=== PATIENT | female | born 1965 | race Caucasian/White ===

== ENCOUNTER → 2020-03-16 10:34 | Outpatient (BNVA) | payer BC, SELFPAY | PROVIDERS: PCP Nurse Practitioner Family; Referring Provider Nurse Practitioner Family; Visit Provider Student in an Organized Health Care Education/Training Program | DX: Z76.89 Persons encountering health services in other specified circumstances (principal) ==

== ENCOUNTER 2020-04-10 13:26 | Outpatient (REF) | payer BC, SELFPAY ==
[2020-04-12 18:16] LABS: HPV mRNA E6/E7 rflx Not Detected (Not Detected)
== END 2020-04-10 13:27 | disposition home or self-care (01) ==
LOC: HO.LAB 13:26
PROVIDERS: PCP Nurse Practitioner Family; Visit Provider Advanced Practice Midwife
DX: Z01.419 Encounter for gynecological examination (general) (routine) without abnormal findings (principal); J44.9 Chronic obstructive pulmonary disease, unspecified; Z87.42 Personal history of other diseases of the female genital tract
CPT/HCPCS: 87624; 87625; 88142

== ENCOUNTER → 2020-04-16 12:46 | Outpatient (BNVA) | payer BC, SELFPAY | PROVIDERS: Visit Provider Physician Assistant | DX: Z76.89 Persons encountering health services in other specified circumstances (principal) ==

== ENCOUNTER 2020-04-23 12:43 | Outpatient (REF) | payer BC, SELFPAY ==
--- NOTE | 2020-04-23 12:46 | MM_ITS ---
EXAMINATION: MM SCREENING DIGITAL BREAST TOMOSYNTHESIS, BILATERAL CLINICAL INFORMATION: Screening. Asymptomatic. The lifetime risk of breast cancer based on the Tyrer-Cuzick Model is 8%. COMPARISON: Mammography: 11/18/2018, 08/05/2016 TECHNIQUE: Digital breast tomosynthesis is performed in both the craniocaudal and mediolateral oblique views along with computer-aided detection (CAD). Synthesized 2D images are generated from the tomosynthesis. FINDINGS: There are scattered areas of fibroglandular density (ACR BI-RADS breast composition Category b). Parenchymal pattern is similar to prior exams. There is chronic duct ectasia anterior outer right breast. Neither breast shows interval mass or architectural abnormality or developing density. No abnormal calcifications. The axilla and skin contours are unremarkable. MM/MM tomosynthesis screening BI IMPRESSION: No significant changes from prior studies. ASSESSMENT: BI-RADS 2: Benign RECOMMENDATION: Routine annual mammography screening. This patient's information was entered into a reminder system with a target due date for their next mammogram.
== END 2020-04-23 12:44 | disposition home or self-care (01) ==
LOC: HO.MAMMO 12:43
PROVIDERS: PCP Nurse Practitioner Family; Visit Provider Nurse Practitioner Family
DX: Z12.31 Encounter for screening mammogram for malignant neoplasm of breast (principal)
CPT/HCPCS: 77063; 77067

== ENCOUNTER 2020-04-23 13:49 | Outpatient (REF) | payer BC, SELFPAY ==
--- NOTE | 2020-04-23 17:36 | PFT_ITS ---
FLOWS: FEV1 of 63% of predicted at 1.76 L. FVC 61% of predicted at 2.17 L. FEV1 to FVC ratio of 0.81. No bronchodilator response except in small to medium airways. LUNG VOLUMES: Total lung capacity 79% of predicted at 4.15 L. Residual volume 92% of predicted at 1.82 L. Slow vital capacity 72% of predicted at 2.34 L. Expiratory reserve volume 23% of predicted at 0.23 L. Diffusion capacity is mildly decreased, diffusion capacity adjust to normal after correction for alveolar ventilation. IMPRESSION: Mild restrictive ventilatory defect with no bronchodilator response except in small to medium airways. Decreased expiratory reserve volume suggests extrathoracic restriction likely secondary to abdominal obesity. MD ROBINSON Smith/MODL / [id number]
== END 2020-04-23 13:50 | disposition home or self-care (01) ==
LOC: HO.RESP 13:49
PROVIDERS: PCP Nurse Practitioner Family; Visit Provider Internal Medicine
DX: J44.9 Chronic obstructive pulmonary disease, unspecified (principal)
CPT/HCPCS: 94060; 94727; 94729

== ENCOUNTER 2020-04-30 13:04 | Outpatient (REF) | payer BC, SELFPAY ==
--- NOTE | 2020-04-30 13:06 | US_ITS ---
EXAMINATION: ULTRASOUND PELVIS COMPLETE CLINICAL INFORMATION: Pelvic and perineal pain. COMPARISON: None TECHNIQUE: Transabdominal and transvaginal imaging of pelvis is performed. FINDINGS: The uterus is anteverted and anteflexed measuring 9.6 cm in length, 3.1 cm in AP and 3.9 cm in transverse dimension. Endometrial thickness is not visualized. There is a hypoechoic lesion in anterior lower uterine segment. It measures 1.1 x 0.6 0.9 cm and is consistent with small fibroid. There is hyperechoic area in the cervix measuring 1.1 x 0.65 cm question adhesions or polyp. Right ovary not seen. There are left ovary on transvaginal ultrasound measures 3.2 x 2.4 x 1.9 cm and volume 7.6 mL. There is no free fluid in cul-de-sac. US/US pelvic complete IMPRESSION: ? polyps versus thickened adhesion in the cervix. Small uterine fibroid. The left ovary is unremarkable. The right ovary is seen.
--- NOTE | 2020-04-30 13:06 | US_ITS ---
EXAMINATION: ULTRASOUND PELVIS COMPLETE CLINICAL INFORMATION: Pelvic and perineal pain. COMPARISON: None TECHNIQUE: Transabdominal and transvaginal imaging of pelvis is performed. FINDINGS: The uterus is anteverted and anteflexed measuring 9.6 cm in length, 3.1 cm in AP and 3.9 cm in transverse dimension. Endometrial thickness is not visualized. There is a hypoechoic lesion in anterior lower uterine segment. It measures 1.1 x 0.6 0.9 cm and is consistent with small fibroid. There is hyperechoic area in the cervix measuring 1.1 x 0.65 cm question adhesions or polyp. Right ovary not seen. There are left ovary on transvaginal ultrasound measures 3.2 x 2.4 x 1.9 cm and volume 7.6 mL. There is no free fluid in cul-de-sac. US/US transvaginal IMPRESSION: ? polyps versus thickened adhesion in the cervix. Small uterine fibroid. The left ovary is unremarkable. The right ovary is seen.
== END 2020-04-30 13:05 | disposition home or self-care (01) ==
LOC: HO.US 13:04
PROVIDERS: PCP Nurse Practitioner Family; Visit Provider Advanced Practice Midwife
DX: R10.2 Pelvic and perineal pain (principal)
CPT/HCPCS: 76830; 76856

== ENCOUNTER → 2020-05-08 11:21 | Outpatient (BNVA) | payer BC, SELFPAY | PROVIDERS: Visit Provider Advanced Practice Midwife | DX: Z76.89 Persons encountering health services in other specified circumstances (principal) ==

== ENCOUNTER → 2020-05-09 15:37 | Outpatient (BNVA) | payer BC, SELFPAY | PROVIDERS: Visit Provider Internal Medicine | DX: Z76.89 Persons encountering health services in other specified circumstances (principal) ==

== ENCOUNTER → 2020-08-14 12:46 | Outpatient (BNVA) | payer BC, SELFPAY | PROVIDERS: PCP Nurse Practitioner Family; Visit Provider Orthopaedic Surgery | DX: M79.642 Pain in left hand (principal); M65.312 Trigger thumb, left thumb | CPT/HCPCS: 20550; J1100 ==

== ENCOUNTER 2020-08-15 10:04 | Outpatient (REF) | payer BC, SELFPAY ==
--- NOTE | ~2020-08-15 | XR_ITS ---
EXAMINATION: XR HAND WRIST, RIGHT XR HAND WRIST, LEFT CLINICAL INFORMATION: Primary osteoarthritis bilateral hands, M19.041 COMPARISON: Bilateral hand radiographs 07/15/2016. TECHNIQUE: The right hand and wrist are imaged together in large [id number] images for a total of 3 views. The left hand and wrist are imaged together in large [id number] images for a total of 3 views. There are total of 6 views. FINDINGS: Right: There is no fracture or dislocation. The bony mineralization appears within normal. The ulnar variance is neutral. There is mild chondrocalcinosis in region of the triangular fibrocartilage. Borderline narrowing is present at the triscaphe joint. No erosive change. The MCP joints show mild narrowing of the third and fourth joints. No erosive change. The PIP joints show mild narrowing second through fifth digits without erosive change. The DIP joints demonstrate prominent osteoarthritic changes second through fifth fingers with probable central erosions suggesting erosive osteoarthritis. Left: There is no fracture or dislocation. The bony mineralization appears within normal. The ulnar variance is neutral. There is some mild chondrocalcinosis in region of the triangular fibrocartilage. Mild degenerative change is present at the triscaphe joint. No erosive change. The MCP joints show mild narrowing of the third, and fourth joints. No erosive change. The PIP joints show mild narrowing second through fifth digits without erosive change. The DIP joints demonstrate prominent osteoarthritic changes greatest involving the third finger with probable central erosions suggesting erosive osteoarthritis. There is lesser degenerative changes fifth, fourth, and second DIP joints without erosive change. XR/XR hand wrist RT IMPRESSION: 1. Bilateral osteoarthritic changes DIP joints greater on right and increased from 2017. 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 2. Mild bilateral narrowing MCP and PIP joints. No erosive change. 3. Mild bilateral chondrocalcinosis triangular fibrocartilage. Mild bilateral degenerative changes triscaphe joints. No erosive change.
--- NOTE | ~2020-08-15 | XR_ITS ---
EXAMINATION: XR HAND WRIST, RIGHT XR HAND WRIST, LEFT CLINICAL INFORMATION: Primary osteoarthritis bilateral hands, M19.041 COMPARISON: Bilateral hand radiographs 07/15/2016. TECHNIQUE: The right hand and wrist are imaged together in large [id number] images for a total of 3 views. The left hand and wrist are imaged together in large [id number] images for a total of 3 views. There are total of 6 views. FINDINGS: Right: There is no fracture or dislocation. The bony mineralization appears within normal. The ulnar variance is neutral. There is mild chondrocalcinosis in region of the triangular fibrocartilage. Borderline narrowing is present at the triscaphe joint. No erosive change. The MCP joints show mild narrowing of the third and fourth joints. No erosive change. The PIP joints show mild narrowing second through fifth digits without erosive change. The DIP joints demonstrate prominent osteoarthritic changes second through fifth fingers with probable central erosions suggesting erosive osteoarthritis. Left: There is no fracture or dislocation. The bony mineralization appears within normal. The ulnar variance is neutral. There is some mild chondrocalcinosis in region of the triangular fibrocartilage. Mild degenerative change is present at the triscaphe joint. No erosive change. The MCP joints show mild narrowing of the third, and fourth joints. No erosive change. The PIP joints show mild narrowing second through fifth digits without erosive change. The DIP joints demonstrate prominent osteoarthritic changes greatest involving the third finger with probable central erosions suggesting erosive osteoarthritis. There is lesser degenerative changes fifth, fourth, and second DIP joints without erosive change. XR/XR hand wrist LT IMPRESSION: 1. Bilateral osteoarthritic changes DIP joints greater on right and increased from 2017. 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 2. Mild bilateral narrowing MCP and PIP joints. No erosive change. 3. Mild bilateral chondrocalcinosis triangular fibrocartilage. Mild bilateral degenerative changes triscaphe joints. No erosive change.
[2020-08-15 14:42] LABS: MANUAL DIFF FLAG NO
[2020-08-15 14:48] LABS: Basophils Percent Auto 0.1 % (0-2); Hematocrit 40.6 % (37-47); Hemoglobin 12.9 g/dl (12.0-16.0); Imm Gran Abs Auto 0.03 X10*3/uL (0.00-0.03); Imm Gran Pct Auto 0.3 % (0.0-0.4); Lymphocytes Absolute Auto 1.7 X10*3/uL (1.2-4.9); Lymphocytes Percent Auto 15.1 % (20-40); Mean Corpuscular HGB Conc 31.8 g/dl (31.0-35.0); Mean Corpuscular Hemoglobin 29.2 pg (27.0-33.0); Mean Corpuscular Volume 91.9 fL (80-98); Mean Platelet Volume 12.2 fL (9.4-12.3); Monocytes Absolute Auto 0.6 X10*3/uL (0.1-1.2); Monocytes Percent Auto 5.2 % (2-11); Neutrophils Absolute Auto 8.8 X10*3/uL (2.0-8.3); Neutrophils Percent Auto 79.3 % (45-73); Platelet Count 268 X10*3/uL (160-400); Red Blood Count 4.42 X10*6/uL (4.20-5.50); Red Cell Distribution Width 13.9 % (11.0-16.0); White Blood Count 11.1 X10*3/uL (4.8-10.8)
[2020-08-15 15:14] LABS: Alanine Aminotransferase 12 U/L (0-31); Albumin Level 4.3 g/dL (3.5-5.0); Alkaline Phosphatase 66 U/L (39-117); Anion Gap 12 (12-20); Aspartate Amino Transferase 14 U/L (5-31); Bilirubin Total 0.4 mg/dL (0.0-1.0); Blood Urea Nitrogen 9 mg/dL (9-16); C Reactive Protein 0.59 mg/dL (< or = 0.50); Carbon Dioxide 29 mmol/L (22-29); Chloride 105 mmol/L (96-108); Estimated Glomerular Filt Rate > 60; Glucose Random 83 mg/dL (60-115); Potassium 3.9 mmol/L (3.3-5.1); Rheumatoid Factor < 15.0 IU/mL (<15.0); Sodium 142 mmol/L (135-145); Total Protein 6.8 g/dL (6.5-8.0)
[2020-08-15 15:30] LABS: Erythrocyte Sedimentation Rate 24 MM/HR (0-20)
[2020-08-17 01:57] LABS: Cyclic Citrullinated Peptide <16 UNITS
== END 2020-08-15 10:05 | disposition home or self-care (01) ==
LOC: HO.HMGCX 10:04
PROVIDERS: PCP Nurse Practitioner Family; Visit Provider Student in an Organized Health Care Education/Training Program
DX: M19.041 Primary osteoarthritis, right hand (principal); M79.642 Pain in left hand; M79.89 Other specified soft tissue disorders
CPT/HCPCS: 36415; 73110; 73130; 80053; 85025; 85652; 86140; 86200; 86431

== ENCOUNTER → 2020-09-13 15:10 | Outpatient (BNVA) | payer BC, SELFPAY | PROVIDERS: PCP Nurse Practitioner Family; Visit Provider Student in an Organized Health Care Education/Training Program ==

== ENCOUNTER 2020-09-27 06:03 | Outpatient (REF) | payer BC, SELFPAY ==
[2020-09-27 12:22] LABS: Anion Gap 14 (12-20); Blood Urea Nitrogen 12 mg/dL (9-16); Calcium 9.2 mg/dL (8.4-10.2); Carbon Dioxide 27 mmol/L (22-29); Chloride 107 mmol/L (96-108); Cholesterol 290 mg/dL; Estimated Glomerular Filt Rate > 60; Glucose Fasting 91 mg/dL (60-99); HDL Cholesterol 51 mg/dL; LDL Cholesterol Calculated 213 mg/dl; Potassium 4.3 mmol/L (3.3-5.1); Sodium 144 mmol/L (135-145); Triglycerides 131 mg/dL
[2020-09-27 12:26] LABS: TSH reflex Free T4 0.74 uIU/mL (0.32-4.0)
== END 2020-09-27 06:04 | disposition home or self-care (01) ==
LOC: HO.HMGCLDS 06:03
PROVIDERS: PCP Nurse Practitioner Family; Visit Provider Nurse Practitioner Family
DX: Z00.00 Encounter for general adult medical examination without abnormal findings (principal)
CPT/HCPCS: 36415; 80048; 80061; 84443

== ENCOUNTER 2021-02-13 06:36 | Outpatient (REF) | payer BC, SELFPAY ==
[2021-02-13 12:00] LABS: Cholesterol 234 mg/dL; HDL Cholesterol 57 mg/dL; LDL Cholesterol Calculated 155 mg/dl; Triglycerides 110 mg/dL
== END 2021-02-13 06:37 | disposition home or self-care (01) ==
LOC: HO.HMGCLDS 06:36
PROVIDERS: PCP Nurse Practitioner Family; Visit Provider Nurse Practitioner Family
DX: E78.5 Hyperlipidemia, unspecified (principal)
CPT/HCPCS: 36415; 80061

== ENCOUNTER 2021-02-16 10:25 | Outpatient (REF) | payer BC, SELFPAY ==
--- NOTE | ~2021-02-16 | XR_ITS ---
EXAMINATION: XR WRIST, RIGHT XR WRIST, LEFT CLINICAL INFORMATION: Osteoarthritis. COMPARISON: Right and left hand/wrist radiographs dated 08/15/2020 TECHNIQUE: AP, oblique, lateral, and scaphoid views of the right and left wrist. FINDINGS: Right Wrist: Radiocarpal joint space narrowing with mild bony remodeling and small marginal osteophytes. Triscaphe and 1st carpometacarpal joint space narrowing with marginal osteophytes. No fracture or dislocation. No abnormal soft tissue calcification. Left Wrist: Radiocarpal joint space narrowing with mild bony remodeling and small marginal osteophytes. Triscaphe and 1st carpometacarpal joint space narrowing with marginal osteophytes. No fracture or dislocation. Redemonstration of an accessory ossicle adjacent to the ulnar styloid. XR/XR wrist LT 2V IMPRESSION: Right Wrist: Moderate osteoarthritis at the radiocarpal and triscaphe joints with more mild osteoarthritis at the 1st carpometacarpal joint. Findings are unchanged. Left Wrist: Moderate osteoarthritis at the radiocarpal and triscaphe joints with more mild osteoarthritis at the 1st carpometacarpal joint. Findings are unchanged.
--- NOTE | ~2021-02-16 | XR_ITS ---
EXAMINATION: XR WRIST, RIGHT XR WRIST, LEFT CLINICAL INFORMATION: Osteoarthritis. COMPARISON: Right and left hand/wrist radiographs dated 08/15/2020 TECHNIQUE: AP, oblique, lateral, and scaphoid views of the right and left wrist. FINDINGS: Right Wrist: Radiocarpal joint space narrowing with mild bony remodeling and small marginal osteophytes. Triscaphe and 1st carpometacarpal joint space narrowing with marginal osteophytes. No fracture or dislocation. No abnormal soft tissue calcification. Left Wrist: Radiocarpal joint space narrowing with mild bony remodeling and small marginal osteophytes. Triscaphe and 1st carpometacarpal joint space narrowing with marginal osteophytes. No fracture or dislocation. Redemonstration of an accessory ossicle adjacent to the ulnar styloid. XR/XR wrist RT 2V IMPRESSION: Right Wrist: Moderate osteoarthritis at the radiocarpal and triscaphe joints with more mild osteoarthritis at the 1st carpometacarpal joint. Findings are unchanged. Left Wrist: Moderate osteoarthritis at the radiocarpal and triscaphe joints with more mild osteoarthritis at the 1st carpometacarpal joint. Findings are unchanged.
--- NOTE | ~2021-02-16 | XR_ITS ---
EXAMINATION: XR CHEST CLINICAL INFORMATION: Cough. COMPARISON: Chest radiograph dated 08/10/2019. TECHNIQUE: 2 views of the chest were obtained. FINDINGS: The lungs are clear. The cardiomediastinal silhouette is normal in size. There is no pleural effusion or pneumothorax. No acute osseous abnormality. XR/XR chest 2V IMPRESSION: No acute cardiopulmonary findings.
== END 2021-02-16 10:26 | disposition home or self-care (01) ==
LOC: HO.HMGCX 10:25
PROVIDERS: PCP Nurse Practitioner Family; Visit Provider Nurse Practitioner Family
DX: Z13.89 Encounter for screening for other disorder (principal)
CPT/HCPCS: 71046; 73100